=== PATIENT | male | born 1950 | race Caucasian/White ===

== ENCOUNTER → 2016-12-13 | Outpatient (CLI) | payer OTHER, MEDICAID ==
[2016-12-13 15:28] LABS: BASO % 0.4 % (0.0-1.0); EOS # 0.2 10*3/uL (0.0-0.4); EOS % 2.6 % (1.0-4.0); HEMATOCRIT 42.2 % (42.0-52.0); LYMPH # 1.6 10*3/uL (1.3-4.4); LYMPH % 19.2 % (27.0-41.0); MEAN CELL VOLUME 84.6 fl (80.0-94.0); MEAN CORPUSCULAR HGB 28.1 pg (27.0-31.0); MEAN CORPUSCULAR HGB CONC 33.2 g/dl (33.0-37.0); MEAN PLATELET VOLUME 9.9 fl (9.6-12.3); MONO # 0.6 10*3/uL (0.1-1.0); MONO % 6.6 % (3.0-9.0); NEUT # 5.9 10*3/uL (2.3-7.9); NEUT % 70.7 % (47.0-73.0); PLATELET COUNT AUTOMATED 298 10*3/uL (130-400); RED BLOOD COUNT 4.99 10*6/uL (4.50-5.90); WHITE BLOOD COUNT 8.3 10*3/uL (4.8-10.8)
[2016-12-13 15:38] LABS: URINE CREATININE RANDOM 84.7 mg/dL
[2016-12-13 15:43] LABS: ALBUMIN 3.2 gm/dl (3.1-4.5); CREATININE 1.51 mg/dL (0.70-1.30); MAGNESIUM 2.6 mg/dL (1.5-2.1); PHOSPHOROUS 2.2 mg/dL (2.5-4.9); POTASSIUM 3.8 mmol/L (3.5-5.1); TOTAL PROTEIN 7.2 gm/dL (6.4-8.2); URIC ACID 4.5 mg/dL (3.5-7.2)
== END | disposition home or self-care (01) ==
LOC: LAB 14:41
PROVIDERS: Internal Medicine Nephrology
DX: I12.9 Hypertensive chronic kidney disease with stage 1 through stage 4 chronic kidney disease, or unspecified chronic kidney disease (principal); N18.3 Chronic kidney disease, stage 3 (moderate); E78.5 Hyperlipidemia, unspecified; G47.33 Obstructive sleep apnea (adult) (pediatric)

== ENCOUNTER → 2017-03-22 | Outpatient (CLI) | payer OTHER, MEDICAID ==
--- NOTE | ~2017-03-22 | PF ---
[place], [place] PULMONARY FUNCTION TEST NAME: GIDEON LINO UNIT #: [id number] ROOM: DOCTOR: INA SON MD,DONY BIRTHDATE: [birth year] DOS: 03/22/2017 The test was done on 03/22/[address] Santana Combs. HISTORY: The patient recorded as 66-year-old outpatient, male, height of 73 inches, weight of 225 pounds, and BMI 29.7 with ongoing symptoms of dyspnea with exertion, nonproductive cough, and rare wheezing. One pack of tobacco use was noted after the patient passed 50 years. SPIROMETRY: The spirometry for this patient noted with FVC of 3.64 liters, 72% predicted value, mildly decreased. FEV1 was noted 2.77 liters as 73% predicted value, mildly decreased. Ratio of FEV1/FVC was recorded as 76%. Post-bronchodilator, no improvement noted. The flow volume loop for the patient was noted suggestive of mild obstructive airway pattern. The lung volumes, thoracic gas volume recorded as 62%, residual volume 78%, and total lung capacity 70%. ERV for the patient noted decrease at 36%. The lung volume for the patient suggestive of mild restrictive lung disease. The patient's lung diffusion noted mildly decreased without correction of carbon monoxide and hemoglobin values. Airway resistance and specific conductance noted mildly abnormal with partial improvement post-bronchodilator test. 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 DONY BUCKLEY MD CM:PFREPORT:PULMONARY FUNCTION TEST [id number] DONY SON MD
== END | disposition home or self-care (01) ==
LOC: CP 10:35
DX: J40 Bronchitis, not specified as acute or chronic (principal)

== ENCOUNTER → 2017-06-28 | Outpatient (CLI) | payer OTHER, MEDICAID ==
[2017-06-28 13:20] LABS: BASO % 0.3 % (0.0-1.0); EOS # 0.2 10*3/uL (0.0-0.4); EOS % 2.3 % (1.0-4.0); HEMATOCRIT 43.6 % (42.0-52.0); HEMOGLOBIN 14.2 g/dl (14.0-18.0); LYMPH # 1.4 10*3/uL (1.3-4.4); LYMPH % 19.2 % (27.0-41.0); MEAN CELL VOLUME 83.8 fl (80.0-94.0); MEAN CORPUSCULAR HGB 27.3 pg (27.0-31.0); MEAN CORPUSCULAR HGB CONC 32.6 g/dl (33.0-37.0); MEAN PLATELET VOLUME 9.9 fl (9.6-12.3); MONO # 0.6 10*3/uL (0.1-1.0); MONO % 8.8 % (3.0-9.0); NEUT # 4.9 10*3/uL (2.3-7.9); NEUT % 68.8 % (47.0-73.0); PLATELET COUNT AUTOMATED 267 10*3/uL (130-400); RED CELL DISTRI WIDTH 14.1 % (0-14.5)
[2017-06-28 13:36] LABS: URINE CREATININE RANDOM 62.5 mg/dL
[2017-06-28 13:49] LABS: ALBUMIN 3.3 gm/dl (3.1-4.5); CREATININE 1.51 mg/dL (0.70-1.30); PHOSPHOROUS 2.4 mg/dL (2.5-4.9)
[2017-06-28 14:49] LABS: VITAMIN D, 25-HYDROXY 20.3 ng/mL (30-100)
== END | disposition home or self-care (01) ==
LOC: LAB 12:50
PROVIDERS: Internal Medicine Nephrology
DX: I12.9 Hypertensive chronic kidney disease with stage 1 through stage 4 chronic kidney disease, or unspecified chronic kidney disease (principal); N18.3 Chronic kidney disease, stage 3 (moderate); E78.5 Hyperlipidemia, unspecified; G47.33 Obstructive sleep apnea (adult) (pediatric)